=== PATIENT | female | born 1955 | race Hispanic/Latino ===

== ENCOUNTER → 2018-08-05 | Outpatient (CLI) | payer OTHER | END | disposition home or self-care (01) | LOC: RAH 12:30 | PROVIDERS: ATTEND Family Medicine | DX: Z13.6 Encounter for screening for cardiovascular disorders (principal) | CPT/HCPCS: 75571 ==

== ENCOUNTER 2021-01-20 06:48 | Observation (INO) | payer MEDICARE, OTHER ==
[2021-01-18 15:08] LABS: BASOPHILS % (AUTO) 0.5 % (0.0-5.0); HEMATOCRIT 40.9 % (36-48); LYMPHOCYTES % (AUTO) 33.9 % (21.0-51.0); MEAN CORPUSCULAR HEMOGLOBIN 29.4 pg (27.0-33.0); MEAN CORPUSCULAR VOLUME 89.1 fL (79-99); MONOCYTES % (AUTO) 6.4 % (3.0-13.0); NEUTROPHILS % (AUTO) 57.8 % (40.0-77.0); PLATELET COUNT (AUTO) 285 K/uL (130-400); RED BLOOD CELL COUNT(AUTO) 4.59 MIL/uL (4.00-5.50); RED CELL DISTRIBUTION WIDTH 13.1 % (11.0-15.5); WHITE BLOOD COUNT (AUTO) 10.6 K/uL (4.8-10.8)
[2021-01-19 13:25] VITALS: BP 173/81
[~2021-01-20] VITALS: Ht 157.5 cm; Wt 77.1 kg
[2021-01-20] VITALS (24 sets, daily range): BP systolic 117–157; BP diastolic 57–89
[~2021-01-20 06:48] MED LIST: AEC81 PO; ESTR30GE TD; FAMO20TA8 PO; MULT-1103 PO; VALA100031 PO
[2021-01-20] MEDS ORDERED: LACTATED RINGERS 1000ML 1,000 ML IV ONE (07:03)
[2021-01-20] MEDS: CEFAZOLIN SODIUM 1 GM VIAL IVP ONE ×2 (07:28→07:55)
[2021-01-20] MEDS: CALDOLOR 800MG+NS 250ML 250 ML IV PRN ×2 (07:28→08:54)
[2021-01-20] MEDS ORDERED: LIDOCAINE HCL MPF 1% 5ML VIAL ONE (07:45)
[2021-01-20] MEDS ORDERED: PROPOFOL 10 MG/ML 20ML VIAL IV ONE (07:45)
[2021-01-20] MEDS ORDERED: MIDAZOLAM HCL 1 MG/ML 2ML VIAL ONE (07:45)
[2021-01-20] MEDS ORDERED: SUCCINYLCHOLINE CHLORIDE 20 MG/ML 10 ML VIAL ONE (07:45)
[2021-01-20] MEDS ORDERED: ROCURONIUM 10MG/1ML SYR 10 MG/ML ML ONE (07:46)
[2021-01-20] MEDS ORDERED: FENTANYL CITRATE PF 50 MCG/1 ML 2ML VIAL ONE (07:49)
[2021-01-20] MEDS ORDERED: ONDANSETRON 4MG INJ ONE (08:05)
[2021-01-20] MEDS ORDERED: ESTROGENS,CONJUGATED 0.625 MG/GM 42.5 GM VAG CRM VG ONE (08:26)
[2021-01-20] MEDS ORDERED: GLYCOPYRROLATE 1 MG/5 ML SYRINGE ONE (08:35)
[2021-01-20] MEDS ORDERED: NEOSTIGMINE 5MG/5ML SYR IV ONE (08:36)
[2021-01-20] MEDS ORDERED: BISACODYL 10 MG SUPP.RECT RC PRN (09:00)
[2021-01-20] MEDS ORDERED: ESTRADIOL 0.1 MG/24 HR PATCH (WEEKLY) TD SCH (09:00)
[2021-01-20] MEDS ORDERED: PROMETHAZINE HCL 25 MG/ML 1ML AMPULE IM PRN ×2 (09:00)
[2021-01-20] MEDS ORDERED: ONDANSETRON 4MG INJ IVP PRN (09:00)
[2021-01-20] MEDS ORDERED: IBUPROFEN 800 MG TAB PO PRN (09:00)
[2021-01-20] MEDS ORDERED: MEPERIDINE-PF 75 MG/ML SYG IM PRN (09:00)
[2021-01-20] MEDS ORDERED: HYDROCODONE/ACETAMINOPHEN 5/325 MG TAB PO PRN (09:00)
[2021-01-20] MEDS ORDERED: ACETAMINOPHEN WITH CODEINE 1 TAB TAB PO PRN ×2 (09:00)
[2021-01-20] MEDS: DEXTROSE 5 %-0.45 % NACL 1,000 ML IV PRN ×2 (11:31→22:44)
[2021-01-20] MEDS: CALDOLOR 800MG+NS 250ML 250 ML IV SCH (17:19)
[2021-01-20] MEDS: ACETAMINOPHEN 325 MG TAB PO PRN (19:20)
[2021-01-20] MEDS: SIMETHICONE 80 MG TAB.CHEW PO PRN (21:03)
[2021-01-20] MEDS: DOCUSATE SODIUM 100 MG CAP PO PRN (21:03)
[2021-01-21] MEDS: CALDOLOR 800MG+NS 250ML 250 ML IV SCH (00:51)
[2021-01-21 03:10] VITALS: BP 127/73
[2021-01-21 07:10] VITALS: BP 142/73
[2021-01-21] MEDS: SIMETHICONE 80 MG TAB.CHEW PO PRN (09:29)
[2021-01-21] MEDS: DOCUSATE SODIUM 100 MG CAP PO PRN (09:29)
[2021-01-21] MEDS: ACETAMINOPHEN 325 MG TAB PO PRN (09:34)
[2021-01-21 11:24] VITALS: BP 150/82
== END 2021-01-21 14:15 | disposition home or self-care (01) ==
LOC: DAH 06:48 → WSH 06:49
PROVIDERS: ADMIT Obstetrics & Gynecology; ATTEND Obstetrics & Gynecology
DX: N81.6 Rectocele (principal); Z20.822 Contact with and (suspected) exposure to COVID-19; N95.2 Postmenopausal atrophic vaginitis; E78.00 Pure hypercholesterolemia, unspecified; M06.9 Rheumatoid arthritis, unspecified; R11.2 Nausea with vomiting, unspecified; Z90.710 Acquired absence of both cervix and uterus; Z85.038 Personal history of other malignant neoplasm of large intestine; Z85.3 Personal history of malignant neoplasm of breast; Z98.51 Tubal ligation status
CPT/HCPCS: 36415; 57250; 85025; 86850; 86900; 86901; 87635; 96361 ×2; 96365; 96366 ×2; A4215 ×2; A4221; A4222; A4223; A4351; A4510; A4600; A4663; A6260; C9803; G0378 ×31; G0379; J0330; J0690; J1741 ×3; J2250; J2405; J2704; J2710; J3010; J3490 ×2; J7120

== ENCOUNTER → 2022-07-28 | Outpatient (CLI) | payer MEDICARE, OTHER | END | disposition home or self-care (01) | LOC: RAH 14:23 | PROVIDERS: ATTEND Urology | DX: R31.0 Gross hematuria (principal) | CPT/HCPCS: 76770 ==

== ENCOUNTER → 2022-12-04 | Outpatient (CLI) | payer MEDICARE, OTHER | END | disposition home or self-care (01) | LOC: RAH 14:41 | PROVIDERS: ATTEND Family Medicine | DX: M47.22 Other spondylosis with radiculopathy, cervical region (principal); M48.02 Spinal stenosis, cervical region | CPT/HCPCS: 72050 ==

== ENCOUNTER → 2023-04-02 | Outpatient (CLI) | payer MEDICARE, OTHER | END | disposition home or self-care (01) | LOC: RAH 10:00 | PROVIDERS: ATTEND Family Medicine | DX: M47.22 Other spondylosis with radiculopathy, cervical region (principal); M50.321 Other cervical disc degeneration at C4-C5 level; M48.02 Spinal stenosis, cervical region | CPT/HCPCS: 72141 ==

== ENCOUNTER → 2024-04-03 | Outpatient (CLI) | payer MEDICARE, OTHER ==
[~2024-04-03] MED LIST changes: +LATA2.5D14 OP; +VALA10002 PO; -VALA100031 PO
--- NOTE | 2024-04-03 14:33 | HMCIMG ---
MR SPINAL CANAL, CERV WO CON HISTORY: Radiculopathy COMPARISON: 04/02/2023 TECHNIQUE: MRI of the cervical spine was performed utilizing multiple pulse sequences in axial, coronal and sagittal plane. Patient was not given contrast through intravenous route. FINDINGS: No abnormal signal intensity is seen of the visualized bony structure. No loss of vertebral height is seen. There is reversal of normal lordotic cervical curvature which may be related to muscle spasm or positioning. Degenerative disc signals are present at all cervical spine levels. Cerebellar tonsils are in normal position. The cervical cord is of normal signal intensity without cord compression or impingement. There is left mastoid effusion. At the C4-5 level, there is spondylotic disc causing anterior CSF space effacement with bilateral lateral recess stenosis and mild bilateral neural foraminal stenosis. The central canal measures approximately 5.44 mm in its anterior posterior dimension. At the C5-6 level, there is spondylotic disc causing anterior CSF space effacement with bilateral lateral recess stenosis and mild bilateral neural foraminal stenosis. The central canal measures approximately 6.4 mm in its anterior posterior dimension. IMPRESSION: 1. DJD with cervical spine spondylosis predominantly involving the C4-5 and C5-6 levels as described above.
== END | disposition home or self-care (01) ==
LOC: RAH 13:00
PROVIDERS: ATTEND Family Medicine
DX: M47.22 Other spondylosis with radiculopathy, cervical region (principal); M50.220 Other cervical disc displacement, mid-cervical region, unspecified level; M79.2 Neuralgia and neuritis, unspecified; M48.02 Spinal stenosis, cervical region; M50.121 Cervical disc disorder at C4-C5 level with radiculopathy; M50.122 Cervical disc disorder at C5-C6 level with radiculopathy
CPT/HCPCS: 72141

== ENCOUNTER → 2024-10-21 | Outpatient (CLI) | payer MEDICARE, OTHER ==
--- NOTE | 2024-10-21 16:39 | HMCIMG ---
CERV SPINE 4-5 VWS REASON: SPONDYLOSIS W/U MYELOPATHY OR RADICULOPATHY,CERVICAL REGION. COMPARISON: None TECHNIQUE: 5 images of cervical spine were obtained including the oblique views. FINDINGS: Disc fusion is seen with orthopedic fixation screws traversing the C5-C6 level. There is straightening of the normal lordotic cervical curvature which may be related to muscle spasm or positioning. Bony osteopenia is seen. There are degenerative changes with spondylosis. IMPRESSION: Findings as described above.
--- NOTE | 2024-10-22 08:58 | HMCIMG ---
MAMMO SCREENING BILATERAL HISTORY: Screening mammogram. COMPARISON: 04/04/2022 TECHNIQUE: Bilateral screening mammogram with CAD was performed with craniocaudal and mediolateral oblique projections. FINDINGS: There are scattered areas of fibroglandular density. There is no evidence of a dominant mass, or suspicious microcalcification. There is no evidence of nipple retraction or skin thickening. IMPRESSION: 1. Stable mammogram. Patient was entered into a reminder system with a target due date for their next mammogram. BI-RADS: CATEGORY 2: BENIGN FINDINGS Recommend monthly self breast exam as well as annual clinical examination. A negative x-ray should not delay biopsy if a dominant or clinically suspicious mass is present, since 8-10% of cancers are not identified by mammography. Dense breasts particularly, may obscure an underlying neoplasm. Some of these may be detected clinically and therefore, clinical examination is an essential part of breast evaluation.
== END | disposition home or self-care (01) ==
LOC: RAH 09:37
PROVIDERS: ATTEND Nurse Practitioner Critical Care Medicine
DX: Z12.31 Encounter for screening mammogram for malignant neoplasm of breast (principal); M47.812 Spondylosis without myelopathy or radiculopathy, cervical region; R92.323 Mammographic fibroglandular density, bilateral breasts; M43.22 Fusion of spine, cervical region; M43.8X2 Other specified deforming dorsopathies, cervical region; M85.88 Other specified disorders of bone density and structure, other site
CPT/HCPCS: 72050; 77067